=== PATIENT | female | born 1950 | race Caucasian/White ===

== ENCOUNTER 2016-08-21 05:58 | Day surgery (SDC) | payer MEDICARE, OTHER ==
--- NOTE | ~2016-08-21 | EGD ---
EGD REPORT [facility] [address] [place] [address] NAME: MARIAMA MENDEZ : [birth year] [place] : [facility] [place] [id number] AGE: 65 ADM/REG DATE : 08/21/16 MR#: [id number] REPORT SERV DATE: 08/21/16 DICTATED BY: EZEQUIEL MORRISON DATE: 08/21/16 REPORT STATUS : Draft TRANSCRIBED BY: [facility] DATE: 08/21/16 Endoscopy Center Patient Name: Mariama Mendez Date of : 1950 Attending MD: EZEQUIEL MORRISON MD Procedure Date No Time: 08/21/2016 Procedure: Upper GI endoscopy Indications: Epigastric abdominal pain, Heartburn; Omeprazole 40mg bid. Patient Profile: Informed consent was obtained from the patient by me prior to the procedure. Risks, benefits, and alternatives were discussed including the risk of bleeding, perforation, infection, reaction to medicine, missed lesion, and cardiopulmonary complications. Referring MD: SHERIF STEWATR MD Medicines: Monitored Anesthesia Care Complications: No immediate complications. Procedure: Pre-Anesthesia Assessment: - ASA Grade Assessment: III - A patient with severe systemic disease. After obtaining informed consent, the endoscope was passed under direct vision. Throughout the procedure, the patient's blood pressure, pulse, and oxygen saturations were monitored continuously. The GIF [id number] [id number] was introduced through the mouth, and advanced to the second part of duodenum. The endoscope was withdrawn with careful examination all mucosal surfaces including retroflexion stomach. The upper GI endoscopy was accomplished without difficulty. The patient tolerated the procedure well. Findings: The 2nd part of the duodenum was normal. Biopsies were taken with a cold forceps for histology. The first part of the duodenum was normal. The entire examined stomach was normal. The gastric fundus (on retroflexion) was normal. A single 10 mm pedunculated polyp was found in the gastric body. The polyp was removed with a hot snare. Resection and retrieval were complete. The examined esophagus was normal. Biopsies were taken with a cold forceps for histology from mid and upper. 48F Savary dilation performed over guidewire held in antrum; minimal resistance to dilation; endoscopic visualization afterwards no mucosal breaks. The esophagus and gastroesophageal junction were examined with white EGD REPORT [address] [address] NAME: MARIAMA MENDEZ : [birth year] [place] : [facility] [place]#: [id number] AGE: 65 ADM/REG DATE : 08/21/16 MR#: [id number] REPORT SERV DATE: 08/21/16 DICTATED BY: EZEQUIEL MORRISON DATE: 08/21/16 REPORT STATUS : Draft TRANSCRIBED BY: [employer] DATE: 08/21/16 light. There was no visual evidence of Esparza's esophagus. Impression: - Normal 2nd part of the duodenum. Biopsied. - Normal first part of the duodenum. - Normal stomach. - Normal gastric fundus. - A single gastric polyp. Resected and retrieved. - Normal esophagus. Biopsied. Dilated. - There is no endoscopic evidence of Esparza's esophagus. Recommendation: - Regular diet. - Patient has a contact number available for emergencies. The signs and symptoms of potential delayed complications were discussed with the patient. Return to normal activities tomorrow. Written discharge instructions were provided to the patient. - Regular diet. - Continue present medications. - Await pathology results. - Schd 4hr GET re: early satiety, GERD. Procedure Code(s): --- Professional --- 84847, Esophagogastroduodenoscopy, flexible, transoral; with removal of tumor(s), polyp(s), or other lesion(s) by snare technique 30556, Esophagogastroduodenoscopy, flexible, transoral; with insertion of guide wire followed by passage of dilator(s) through esophagus over guide wire 29333, 59, Esophagogastroduodenoscopy, flexible, transoral; with biopsy, single or multiple Diagnosis Code(s): --- Professional --- K31.7, Polyp of stomach and duodenum R10.13, Epigastric pain R12, Heartburn CPT copyright 2013 [employer]. All rights reserved. The codes documented in this report are preliminary and upon certified welding inspector review may be revised to meet current compliance requirements. EZEQUIEL MORRISON MD 08/21/2016 7:56 AM This report has been signed electronically. Number of Addenda: 0 EGD REPORT [facility] [address] [place]. [address] NAME: MARIAMA MENDEZ : [birth year] [place] : [facility] [place]#: [id number] AGE: 65 ADM/REG DATE : 08/21/16 MR#: [id number] REPORT SERV DATE: 08/21/16 DICTATED BY: EZEQUIEL MORRISON DATE: 08/21/16 REPORT STATUS : Draft TRANSCRIBED BY: [employer] DATE: 08/21/16 Note Initiated On: 08/21/2016 7:36 AM Scope Withdrawal Time 0 hours 0 minutes 0 seconds [address] [place] [address]
--- NOTE | ~2016-08-21 | EGD ---
EGD REPORT [facility] [address] [address] NAME: MARIAMA MENDEZ : [birth year] STATUS : [facility] [place] PAT#: [id number] AGE: 65 ADM/REG DATE : 08/21/16 MR#: [id number] REPORT SERV DATE: 08/21/16 DICTATED BY: EZEQUIEL MORRISON DATE: 08/21/16 REPORT STATUS : Draft [facility]ANSCRIBED [facility]: [facility] DATE: 08/21/16 Endoscopy Center Patient Name: Mariama Mendez Date of : 1950 Attending MD: EZEQUIEL MORRISON MD Procedure Date No Time: 08/21/2016 Procedure: Colonoscopy Indications: High risk colon cancer surveillance: Personal history of sessile serrated colon polyp (less than 10 mm in size) with no dysplasia; last exam 2009. Patient Profile: Informed consent was obtained from the patient by me prior to the procedure. Risks, benefits, and alternatives were discussed including the risk of bleeding, perforation, infection, reaction to medicine, missed lesion, and cardiopulmonary complications. Referring MD: SHERIF STEWART MD Medicines: Monitored Anesthesia Care Complications: No immediate complications. Procedure: Pre-Anesthesia Assessment: - ASA Grade Assessment: III - A patient with severe systemic disease. After I obtained informed consent, the scope was passed under direct vision. Throughout the procedure, the patient's blood pressure, pulse, and oxygen saturations were monitored continuously. The PCF [id number] was introduced through the anus and advanced to the cecum, identified by appendiceal orifice and ileocecal valve. The colonoscope was slowly withdrawn with careful examination all mucosal surfaces including specific attention around flexures and tip deflection behind folds; retroflexion performed in rectum. The colonoscopy was performed without difficulty. The patient tolerated the procedure well. The quality of the bowel preparation was adequate. The ileocecal valve, appendiceal orifice and rectum were photographed. Findings: The colon (entire examined portion) appeared normal. Impression: - The entire examined colon is normal. Recommendation: - Patient has a contact number available for emergencies. The signs and symptoms of potential delayed complications were discussed with the patient. Return to normal activities tomorrow. Written discharge EGD REPORT [address] [place]. [address] NAME: MARIAMA MENDEZ : [birth year] STATUS : [facility] [place] PAT#: [id number] AGE: 65 ADM/REG DATE : 08/21/16 MR#: [id number] REPORT SERV DATE: 08/21/16 DICTATED BY: EZEQUIEL MORRISON. DATE: 08/21/16 REPORT STATUS : Draft TRANSCRIBED BY: [employer] DATE: 08/21/16 instructions were provided to the patient. - Regular diet. - Continue present medications. - Await pathology results. - Repeat colonoscopy in 5 years for surveillance. Procedure Code(s): --- Professional --- 20750, Colonoscopy, flexible, proximal to splenic flexure; diagnostic, with or without collection of specimen(s) by brushing or washing, with or without colon decompression (separate procedure) Diagnosis Code(s): --- Professional --- Z86.010, Personal history of colonic polyps CPT copyright 2013 [employer]. All rights reserved. The codes documented in this report are preliminary and upon medical billing coder review may be revised to meet current compliance requirements. EZEQUIEL MORRISON MD 08/21/2016 8:13 AM This report has been signed electronically. Number of Addenda: 0 Note Initiated On: 08/21/2016 7:37 AM Scope Withdrawal Time 0 hours 10 minutes 32 seconds [address] [place] [address]
[~2016-08-21 05:58] MED LIST: ALLEGRA180 PO; ALLERGY INJECTION IM; ALLERGY INJECTIONS IM; ASABAYER PO; COREG12 PO; COREG6 PO; DELESTROGEN40 MG/ML IM; DEPO-ESTRAD5 MG/1 ML IM; FISH-EPA1000 MG PO; KDUR20 PO; L40 PO; LIPITOR40 PO; LODRANE OR; LORTAB10 PO; OXYCOD PO; PCET PO; PREV30 PO; PRILOSEC40 MG PO; PRIN5 PO; PROAIR HFA INH; REG5 PO; SYMBICORT 160/41 INH INH
== END 2016-08-21 23:59 | disposition home or self-care (01) ==
LOC: DMU 05:58
PROVIDERS: Internal Medicine Gastroenterology
PROC: 0DB98ZX Excision of Duodenum, Via Natural or Artificial Opening Endoscopic, Diagnostic (ICD-10-PCS; 2016-08-21)
PROC: 0DB38ZX Excision of Lower Esophagus, Via Natural or Artificial Opening Endoscopic, Diagnostic (ICD-10-PCS; 2016-08-21)
PROC: 0DJD8ZZ Inspection of Lower Intestinal Tract, Via Natural or Artificial Opening Endoscopic (ICD-10-PCS; principal; 2016-08-21 07:30)
PROC: 0D758ZZ Dilation of Esophagus, Via Natural or Artificial Opening Endoscopic (ICD-10-PCS; 2016-08-21 07:30)
PROC: 0DB68ZZ Excision of Stomach, Via Natural or Artificial Opening Endoscopic (ICD-10-PCS; 2016-08-21 07:30)
DX: Z12.11 Encounter for screening for malignant neoplasm of colon (principal); K31.7 Polyp of stomach and duodenum; K22.8 Other specified diseases of esophagus; I10 Essential (primary) hypertension; J45.909 Unspecified asthma, uncomplicated; G47.33 Obstructive sleep apnea (adult) (pediatric); Z86.010 Personal history of colon polyps; Z90.710 Acquired absence of both cervix and uterus; Z98.890 Other specified postprocedural states
CPT/HCPCS: 43239; 43248; 43251; G0105; 88305